=== PATIENT | female | born 1995 | race African-American/Black ===

== ENCOUNTER 2020-10-14 18:37 | Emergency (ER) | payer BC ==
[2020-10-14] MEDS ORDERED: Dexamethasone 10 MG/ML VIAL ONE (19:35)
== END 2020-10-14 20:38 | disposition home or self-care (01) ==
LOC: CSHERS 18:37
DX: R07.89 Other chest pain (principal); R06.02 Shortness of breath; J45.909 Unspecified asthma, uncomplicated; E03.9 Hypothyroidism, unspecified; Z79.899 Other long term (current) drug therapy
CPT/HCPCS: 71045; 94640; J1100; J7620

== ENCOUNTER 2021-05-21 13:53 | Emergency (ER) | payer SELFPAY ==
[2021-05-21 16:46] LABS: Free T4 (Free Thyroxine) 1.11 ng/dL (0.70-1.48); Thyroid Stimulating Hormone 2.1338 uIU/mL (0.35-4.94)
== END 2021-05-21 17:27 | disposition home or self-care (01) ==
LOC: CSHERS 13:53
DX: R59.0 Localized enlarged lymph nodes (principal); E03.9 Hypothyroidism, unspecified; J45.909 Unspecified asthma, uncomplicated; Z79.899 Other long term (current) drug therapy
CPT/HCPCS: 84439; 84443; 87081; 87430; 99283

== ENCOUNTER 2022-03-22 20:55 | Emergency (ER) | payer BC, SELFPAY ==
[2022-03-22 22:43] LABS: Bilirubin Neg (Negative); Blood, Urine Negative (Negative); Clarity Clear (Clear); Glucose, Urine (Dipstick) Normal (Negative); Ketone, Urine Negative (Negative); Leukocyte 25 (Negative); Nitrite Negative (Negative); Protein, Urine (Dipstick) 15 mg/dl (Neg-Trace)
[2022-03-22 22:46] LABS: Pregnancy Test - Urine (BHCG) Negative (Negative); Pregu Control Background? CLEAR/WHITE (CLR/WHITE); Pregu Control Bar Appear? YES (CONTROL BAR)
[2022-03-22 22:55] LABS: Bacteria/HPF Rare-Few HPF (None Seen); RBC/HPF None Seen HPF (0-3); WBC/HPF 0-3 HPF (0-3)
== END 2022-03-22 23:25 | disposition home or self-care (01) ==
LOC: CSHERS 20:55
DX: M54.50 Low back pain, unspecified (principal); E03.9 Hypothyroidism, unspecified; J45.909 Unspecified asthma, uncomplicated; Z79.899 Other long term (current) drug therapy
CPT/HCPCS: 81003; 81015; 81025; 99283

== ENCOUNTER 2024-05-27 12:29 | Emergency (ER) | payer SELFPAY | END 2024-05-27 14:12 | disposition left against medical advice (07) | LOC: CSHERS 12:29 | DX: Z53.21 Procedure and treatment not carried out due to patient leaving prior to being seen by health care provider (principal) ==

== ENCOUNTER 2024-06-02 19:09 | Emergency (ER) | payer SELFPAY ==
[2024-06-02 21:34] LABS: Troponin I Less than 0.010 ng/mL (< 0.028)
== END 2024-06-02 21:52 | disposition home or self-care (01) ==
LOC: CSHERS 19:09
DX: R07.89 Other chest pain (principal)
CPT/HCPCS: 36415; 71045; 84484; 93005